=== PATIENT | female | born 1970 | race Caucasian/White ===

== ENCOUNTER 2016-08-15 16:46 | Inpatient (IN) | payer OTHER ==
--- NOTE | ~2016-08-15 | DS ---
Unit #: [id number] #: [id number] Patient: ELY BROWN [id number] [facility] [address] [place] [address] [id number] I MR#: [id number] NAME: ELY BROWN ROOM: P203 Age: 45 Sex: F Admission Date: 08/15/2016 : 1970 Discharge Date: 08/18/2016 Attending Physician: Abrahan Edwards M.D. Primary Care Physician: Primary Care Physician No DISCHARGE SUMMARY REASON FOR ADMISSION The patient is a 45-year-old white female admitted after she had been found wandering on [facility] in a state of methamphetamine induced psychosis. HOSPITAL COURSE The patient was admitted to the [address] [place] [address] and placed on suicide precautions, Zydis 10 mg q. 8 hours p.r.n. agitation due to psychosis was ordered. The patient, however, did not require any doses of that medication. When seen initially, the patient was noted to be very paranoid but showed gradual improvement over the next 3 days. On 08/18, the patient was contrite over the events leading to hospitalization. She denied any psychotic symptoms and apologized to this physician and staff for her previous behavior. She was scheduled to see her booking officer at the time of discharge and disposition will be determined at that meeting. DISCHARGE DIAGNOSES 1. Methamphetamine use disorder with perceptual disturbance, resolved. 2. Seizure disorder. FOLLOWUP CARE Followup will take place through the auspices of community mental health resources. DISCHARGE MEDICATIONS Keppra 1000 mg b.i.d. for seizure disorder. PROGNOSIS Considered fair. Dictated by... Abrahan Edwards M.D. RICHARD/joss TD: 08/18/2016 16:50 JOB #: [id number] Unit #: [id number] #: [id number] Patient: ELY BROWN DISCHARGE SUMMARY X Abrahan Edwards MD X DISCHARGE SUMMARY
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
--- NOTE | ~2016-08-15 | HP ---
Unit #: [id number] #: [id number] Patient: ELY BROWN [id number] [facility] [address] [place] [address] [id number] I MR#: [id number] NAME: ELY BROWN ROOM: P203 Age: 45 Sex: F Admission Date: 08/15/2016 : 1970 Attending Physician: Abrahan Edwards M.D. Admitting Physician: Abrahan Edwards M.D. Primary Care Physician: Primary Care Physician No HISTORY AND PHYSICAL HISTORY OF PRESENT ILLNESS Ely is a 45 year old admitted to [address] [place] [address] after she was found wandering on [address]. She thinks someone, Edis, is after her. She was recently told that there is a warrant for her arrest so she had verbalized to someone that she wanted to jump off the bridge. She is currently on parole for prescription fraud. PAST MEDICAL HISTORY 1. Long history of illicit substance abuse to include methamphetamine and heroin. 2. Seizure disorder. PAST SURGICAL HISTORY Nothing reported. ALLERGIES Codeine, erythromycin, Phenergan. SOCIAL HISTORY Smokes 1 pack per day. Drinks alcohol on occasion. Admits to a long history of illicit substance abuse to include methamphetamine and heroin. FAMILY HISTORY Medically noncontributory. REVIEW OF SYSTEMS She does not answer questions appropriately. She is irritable and uncooperative. Nursing staff reports no nausea, vomiting or diarrhea. She has had no cough or increased temperature. CURRENT MEDICATIONS 1. Keppra 1000 mg b.i.d. 2. Milk of Magnesia p.r.n. 3. Maalox p.r.n. 4. Tylenol p.r.n. 5. Zofran p.r.n. 6. Bentyl p.r.n. 7. Loperamide p.r.n. 8. Neurontin 600 mg q. 6 hours p.r.n. 9. Multivitamin 1 daily. PHYSICAL EXAMINATION GENERAL: Alert, well-nourished, in no apparent distress. Unit #: [id number] #: [id number] Patient: ELY BROWN VITAL SIGNS: Blood pressure 100/54, heart rate 80, respirations 16, temperature 98.6. WEIGHT: 110. HEIGHT: 5 feet 2 inches. SKIN: Warm and dry without rash. She has 2 large, approximately half dollar-sized blisters on both heels. The blister has opened, exposing clean pink tissue. HEENT: Normocephalic. TMs not viewed. Oral and nasal passages clear. Conjunctivae clear. PERRLA. EOMs intact. NECK: Supple without lymphadenopathy or thyromegaly. HEART: Regular rate and rhythm without murmur. LUNGS: Clear. ABDOMEN: Soft, nontender. : Not done. EXTREMITIES: No evidence of cyanosis, clubbing or edema. Moves all without focal deficit. NEUROLOGICAL: Grossly within normal limits. Cranial Nerves: II: Visual clarke are intact. III, IV AND : Extraocular movements are intact. Pupils are equal, round and reactive to light. V: Facial sensation is grossly normal. VII: Facial movements and expression are normal. VIII: Auditory acuity grossly intact. IX, X: Uvula is midline. Phonation is normal. XI: Patient shrugs shoulders and turns head normally. XII: Tongue protrudes in the midline. Sensory and Motor Function: Sensory and motor sensation is grossly normal. Motor: moves all extremities well. Coordination: Gait is normal. Deep Tendon Reflexes: Intact. IMPRESSION 1. Psychiatric admission. 2. Long history of illicit substance abuse. 3. Blisters on both of her feet. No signs of secondary infection. RECOMMENDATIONS PSYCHIATRIC: Per psychiatrist. MEDICAL: 1. See no contraindications to participate in facility's activities. 2. Keep the blisters clean with soap and water. Apply antibiotic ointment and cover with a Telfa pad daily. MEDICAL PROGNOSIS Good. MEDICAL CONDITION Stable. Dictated by... Jazmin Engel P.A.-C. for Jackson Montano/joss TD: 08/16/2016 16:36 JOB #: [id number] Unit #: [id number] #: [id number] Patient: ELY BROWN HISTORY AND PHYSICAL X Jazmin Engel HISTORY AND PHYSICAL
--- NOTE | ~2016-08-15 | PN ---
Unit #: [id number] #: [id number] Patient: ELY BROWN [id number] [facility] [address] [place] [address] [id number] I MR#: [id number] NAME: ELY BROWN ROOM: P203 Age: 45 Sex: F Admission Date: 08/15/2016 : 1970 Attending Physician: Abrahan Edwards M.D. Admitting Physician: Abrahan Edwards M.D. Primary Care Physician: Primary Care Physician Crista VALERIO PROGRESS NOTES DATE 08/17/2016 DISCUSSION The patient seems much less paranoid when seen today but continues to believe that she is being followed by an ex-boyfriend. At the same time she appears significantly less disorganized and labile than yesterday as her methamphetamine induced psychosis appears to be clearing. Should she sustain progress, discharge will likely take place tomorrow. Dictated by... Abrahan Edwards M.D. CB/joss TD: 08/17/2016 15:11 JOB #: [id number] [facility] PROGRESS NOTES X Abrahan Edwards MD PROGRESS NOTE
--- NOTE | ~2016-08-15 | PA ---
Unit #: [id number] #: [id number] Patient: ELY BROWN [id number] [facility] [address] [place] [address] [id number] I MR#: [id number] NAME: ELY BROWN ROOM: P203 Age: 45 Sex: F Admission Date: 08/15/2016 : 1970 Date of Assessment: 08/16/2016 Attending Physician: Abrahan Edwards M.D. Admitting Physician: Abrahan Edwards M.D. Primary Care Physician: Primary Care Physician No PSYCHIATRIC ASSESSMENT IDENTIFYING INFORMATION The patient is a 45-year-old white female brought to this facility yesterday by police after she had been found wandering on [facility] [address] [facility]. CHIEF COMPLAINT None given. INFORMANT Patient, reliability is poor. HISTORY OF PRESENT ILLNESS The patient is a 45-year-old white female admitted in transfer from [facility]. She has been taken to that facility by police after she had been found wandering in the [facility] area yesterday. The patient reports increasing paranoia related to concern that she is being followed by someone named Edis. She admitted that she has been abusing methamphetamine and heroin. She is currently on parole for prescription fraud and is fearful that she will return to shelter. She has been told that there is warrant for her arrest, and she had for that reason attempted to suicide yesterday by jumping in front of a moving automobile. When seen today, the patient remains dysphoric, irritable, and continues to express the paranoid delusion that "Edis is after her." She has a history of a previous admission to this facility in 2005 per the face sheet and states that she was admitted to [facility] sometime ago following an overdose. The patient does suffer from seizure disorder and is prescribed Keppra. PAST PSYCHIATRIC HISTORY As above. PAST MEDICAL HISTORY The patient suffers from a seizure disorder. MEDICATIONS Keppra, Prozac, ibuprofen, and vitamin D. The patient is not compliant with all medications. ALLERGIES Codeine, Phenergan, erythromycin. FAMILY HISTORY Noncontributory. Unit #: [id number] #: [id number] Patient: ELY BROWN SOCIAL HISTORY The patient is currently homeless and is on parole as noted previously. She reports abuse of intravenous heroin as well as methamphetamine. MENTAL STATUS EXAMINATION Examination at this time reveals the patient to be a well-developed well-nourished white female appearing her stated age. She is in no apparent physical distress at the time of examination. She is awake, alert, and oriented in all spheres. Her mood is mildly dysphoric, her affect congruent. Speech is generally well-coherent. There are no gross deficits in memory or cognition noted. Intelligence is judged to be in the average range based on fund of knowledge. The patient is cooperative throughout the interview. She is currently reporting positive suicidal ideation. She denies homicidal ideation. She denies any psychotic symptoms. Her judgment and insight appear to be significantly impaired. The patient continues to endorse positive paranoid delusional thinking. ASSETS AND LIABILITIES The patient's assets are to be assessed. Liabilities: Homelessness, lack of resources, ongoing substance use, legal status. DIAGNOSTIC IMPRESSION 1. Delirium, substance-induced. 2. Methamphetamine use disorder. 3. Opiate use disorder. TREATMENT PLAN The patient remains hospitalized for safety and stabilization. I will begin Zydis 10 mg q. 8 hours p.r.n. agitation due to psychosis (1) __ the fact that the patient's psychotic symptoms should subside as the effect methamphetamine subsides. We will watch for any signs of opioid withdrawal, and suicide precautions remain in place. ESTIMATED LENGTH OF STAY 3 to 5 days. Dictated by... Abrahan Edwards M.D. Toby TD: 08/16/2016 14:16 JOB #: [id number] PSYCHIATRIC ASSESSMENT X Abrahan Edwards MD X PSYCHIATRIC ASSESSMENT
[~2016-08-15 16:46] MED LIST: FLEXERIL; NAPROXEN; ULTRAM
[2016-08-16 10:03] LABS: THYROID STIMULATING HORMONE 0.2 uIU/ml (0.34-5.60)
[2016-08-16 10:10] LABS: FREE THYROXIN (T4) 0.95 ng/dL (0.58-1.64)
[2016-08-22 06:05] LABS: HA AB IGM (HEPPAN) Nonreactive (Nonreactive); HB CORE AB IGM (HEPPAN) Nonreactive (Nonreactive); HB S AG (HEPPAN) Nonreactive (Nonreactive); HEP C AB (HEPPAN) Reactive (Nonreactive)
== END 2016-08-18 15:15 | disposition home or self-care (01) | DRG 897 ==
LOC: P2S 16:46
PROVIDERS: Specialist
DX: F15.122 Other stimulant abuse with intoxication with perceptual disturbance (principal); F11.10 Opioid abuse, uncomplicated; R45.851 Suicidal ideations; R41.0 Disorientation, unspecified; G40.909 Epilepsy, unspecified, not intractable, without status epilepticus; Z88.1 Allergy status to other antibiotic agents; Z88.5 Allergy status to narcotic agent; Z88.8 Allergy status to other drugs, medicaments and biological substances; F17.200 Nicotine dependence, unspecified, uncomplicated; S90.822A Blister (nonthermal), left foot, initial encounter; S90.821A Blister (nonthermal), right foot, initial encounter; S90.512A Abrasion, left ankle, initial encounter; S90.511A Abrasion, right ankle, initial encounter
CPT/HCPCS: 80074; 82947; 84439; 84443; 86592; 87522; 87806